=== PATIENT | female | born 1990 ===

== ENCOUNTER 2019-11-25 05:30 | Inpatient (IN) | payer BC ==
[~2019-11-25 05:30] MED LIST: Acetaminophen 500 MG TAB PO PRN; Butorphanol Tartrate 1 MG/ML VIAL SLOW IVP PRN; Carboprost 250 MCG/ML AMP IM PRN; HYDROcodone/Acetaminophen 5/325 mg Tablet PO PRN; Ibuprofen 800 MG TAB PO PRN; Lidocaine 1% (PF) 30 ML VIAL SC PRN; Meperidine HCl/PF 25 MG/ML VIAL IM/IV PRN; Methylergonovine 0.2 MG/ML VIAL IM PRN; Misoprostol 200 MCG TAB PR PRN; Ondansetron PF 4 MG/2 ML Vial IVP PRN; Promethazine HCl 25 MG/ML VIAL IM PRN; hydrALAZINE 20 MG/ML VIAL SLOW IVP PRN
[2019-11-25 06:47] VITALS: BMI 32.8
[2019-11-25] MEDS ORDERED: NS w/ Oxytocin 10 units 500 ML ONE (07:04)
[2019-11-25 08:12] LABS: Hemoglobin 13.7 g/dL (12.0-16.0); Mean Corpuscular HGB CONC 34.5 g/dL (32.0-36.0); Mean Corpuscular Hemoglobin 32.1 pg (27.0-31.0); Mean Corpuscular Volume 93.1 fL (78.0-98.0); Mean Platelet Volume 8.1 fL (7.4-10.4); Platelet Count 153 thou/uL (130-400); RBC Distribution Width 12.6 % (11.5-14.5); Red Blood Cell (RBC) Count 4.27 mill/uL (4.20-5.40); White Blood Cell (WBC) Count 9.8 thou/uL (4.8-10.8)
[2019-11-25 08:46] LABS: Syphilis Antibody Nonreactive (Nonreactive); Syphilis Antibody Index 0.05 S/CO (<1.00 Non-Reactive)
[2019-11-25] MEDS ORDERED: Fentanyl 4 mcg/Bup 0.1% Cadd 100 ML ONE ×3 (08:50→22:40)
[2019-11-25] MEDS ORDERED: Bupivacaine/Epinephrine 0.25% 30 ML VIAL ONE (09:23)
[2019-11-25] MEDS ORDERED: Ondansetron PF 4 MG/2 ML Vial IVP PRN (09:39)
[2019-11-25] MEDS ORDERED: Naloxone HCl 0.4 mg/ml Vial IVP PRN ×2 (09:39)
[2019-11-25] MEDS ORDERED: Lactated Ringer's 500 ML IV PRN (09:39)
[2019-11-25] MEDS ORDERED: Acetaminophen 325 MG TAB PO PRN (09:39)
[2019-11-25] MEDS ORDERED: EPHEDRINE 25 MG/5 ML SYRINGE SLOW IVP PRN (09:39)
[2019-11-25] MEDS ORDERED: Promethazine HCl 25 MG/ML VIAL IM PRN (09:39)
[2019-11-25] MEDS ORDERED: diphenhydrAMINE 50 MG/ML VIAL IVP PRN (09:39)
[2019-11-25] MEDS ORDERED: Fentanyl 4 mcg/Bupivacaine 0.1% Cassette 100 ML EPIDURAL SCH (09:45)
[2019-11-25] MEDS ORDERED: Communication Order-Pharmacy FS SCH (09:45)
[2019-11-25 09:46] LABS: HBSAg Index 0.25 S/CO (0-0.99); Hep B Surf Ag NonReactive S/CO (NonReactive)
[2019-11-25] MEDS: Lactated Ringer's 1,000 ML IV SCH ×2 (10:04→22:30)
--- NOTE | 2019-11-25 12:17 | PDOC.EVN ---
Event Note - Event Note Event Note: Labor check. SVE 6/90/0. FHT 120, moderate variability, many accelerations, no decelerations. Category I. CTX every 2 minutes. Comfortable with epidural. Continue pitocin.
--- NOTE | 2019-11-25 12:18 | PDOC.LDHP ---
Labor and Delivery H&P Chief complaint: scheduled induction HPI: Term IUP. Favorable cervix. Here for IOL. Current gestational age (weeks): 39 Due date: 11/28/19 Dating criteria: last menstrual period, first trimester ultrasound Grav: 1 Para: 0 Current complications: none Abnormal US findings: No Current medications: pre-niranjan vitamins Previous surgical history: none Allergies/Adverse Reactions: Allergies Allergy/AdvReac Type Severity Reaction Status Date / Time No Known Allergies Allergy Verified 11/25/19 06:13 Social history: none - Physical Exam Vital signs reviewed and normal: yes General: NAD Heart: RRR Lungs: CTAB Abdomen: gravid Extremeties: no edema FHT: category 1 [place] contractions every: Irregular - Vaginal Exam cm dilated: 3 Effacement: 50% Station: -1 - OB Labs Blood type: O RH: negative Antibody Screen: negative HIV: negative RPR: negative HEPSAg: negative 1 hour GCT: negative GBS: negative Urine drug screen: not done Rubella: immune - Assessment L&D Assessment: elective induction at term - Plan Plan: admit to L&D, labor augmentation if indicated, informed consent obtained, anesthesia consult for pain management (AROM with thin meconium. Pt tolerated well. No complications.)
[2019-11-25] MEDS: NS w/ Oxytocin 10 units 500 ML IV SCH (23:02)
[2019-11-26] MEDS: NS / Oxytocin 40 units/1000ml 1,000 ML IV PRN ×2 (04:00→05:26)
[2019-11-26 04:04] LABS: Actual Bicarbonate (HCO3a) 23.3 mEq/L (22-28); Base Excess (BEa) -7.7 mEq/L (-2.0 to +3.0)
[2019-11-26 04:14] LABS: Actual Bicarbonate (HCO3v) 20 mEq/L (22-28); Base Excess -8.1 mEq/L (-2.0 to +3.0)
[2019-11-26 04:15] LABS: pH (Cord, venous) 7.22 (7.32-7.43)
--- NOTE | 2019-11-26 04:28 | PDOC.OPDEL ---
OB Operative/Delivery Note Delivery Dr/Surgeon: Chris Pre-Delivery Diagnosis: elective induction Procedure/Post Delivery Dx: spontaneous vaginal delivery (Prolonged second stage , pushed for 3.5 hours, long time , OA, loose nuchal cord, reduced prior to the shoulders, shoulders and body easily followed. to mother's abdomen. Cord clamped and cut.) Weeks gestation: 39 Anesthesia: epidural - Findings A Sex: female - 1 min: 8 - 5 min: 9 - Additional Findings/Plan Placenta delivered: spontaneous (Intact, 3 vessel cord) Repaired Obstetrical Laceration: 2nd degree (Repaired with 2.0 vicryl suture in standard running fashion) Estimated blood loss: 170 Post delivery plan: routine recovery
[2019-11-26] MEDS ORDERED: NS / Oxytocin 40 units/1000ml 1,000 ML IV SCH (06:48)
[2019-11-26] MEDS ORDERED: Bisacodyl 10 MG SUPP PR PRN (06:48)
[2019-11-26] MEDS ORDERED: Milk Of Magnesia 30 ML UDCUP PO PRN (06:48)
[2019-11-26] MEDS ORDERED: Preparation H Ointment 28 GM TUBE PR PRN (06:48)
[2019-11-26] MEDS ORDERED: hydrALAZINE 20 MG/ML VIAL SLOW IVP PRN (06:48)
[2019-11-26] MEDS ORDERED: Benzocaine-Menthol 82.5 ML CAN TOP PRN (06:48)
[2019-11-26] MEDS: Docusate Calcium (SURFAK) 240 MG CAP PO SCH ×2 (08:21→21:42)
[2019-11-26] MEDS: HYDROcodone/Acetaminophen 5/325 mg Tablet PO PRN ×4 (08:22→21:42)
[2019-11-26] MEDS: Ferrous Sulfate 325 MG TAB PO SCH ×2 (08:23→11:49)
[2019-11-26] MEDS: Ibuprofen 800 MG TAB PO SCH ×2 (13:53→21:43)
[2019-11-26] MEDS ORDERED: Lanolin Ointment 7 GM TUBE TOP PRN (23:40)
[2019-11-26] MEDS ORDERED: Calcium Carbonate 500 MG ChewTAB PO PRN (23:40)
[2019-11-27] MEDS: HYDROcodone/Acetaminophen 5/325 mg Tablet PO PRN ×3 (02:15→12:50)
[2019-11-27] MEDS: Ibuprofen 800 MG TAB PO SCH ×2 (05:14→12:49)
[2019-11-27] MEDS: Lactated Ringer's 1,000 ML IV SCH (07:29)
[2019-11-27] MEDS: NS w/ Oxytocin 10 units 500 ML IV SCH (07:30)
[2019-11-27] MEDS: Docusate Calcium (SURFAK) 240 MG CAP PO SCH (07:42)
[2019-11-27] MEDS: Ferrous Sulfate 325 MG TAB PO SCH (07:43)
[2019-11-27 08:03] VITALS: BP 121/64; TEMP 98.7
== END 2019-11-27 13:30 | disposition home or self-care (01) | DRG 807 ==
LOC: L&D 05:48 → 3SW 11-26 06:30
PROVIDERS: ADMIT Family Medicine; ATTEND Family Medicine
PROC: 10E0XZZ Delivery of Products of Conception, External Approach (ICD-10-PCS; principal; 2019-11-26)
PROC: 0KQM0ZZ Repair Perineum Muscle, Open Approach (ICD-10-PCS; 2019-11-26)
PROC: 10907ZC Drainage of Amniotic Fluid, Therapeutic from Products of Conception, Via Natural or Artificial Opening (ICD-10-PCS; 2019-11-26)
PROC: 3E033VJ Introduction of Other Hormone into Peripheral Vein, Percutaneous Approach (ICD-10-PCS; 2019-11-26)
DX: O63.1 Prolonged second stage (of labor) (principal); Z37.0 Single live birth; Z3A.39 39 weeks gestation of pregnancy; O70.1 Second degree perineal laceration during delivery; O69.81X0 Labor and delivery complicated by cord around neck, without compression, not applicable or unspecified; O77.0 Labor and delivery complicated by meconium in amniotic fluid
CPT/HCPCS: 36415; 51702; 82805; 85027; 86780; 86850; 86900; 86901; 87340; J1200; J2590